=== PATIENT | male | born 1990 | race Caucasian/White ===

== ENCOUNTER → 2021-06-03 | Outpatient (CLI) | payer OTHER | LOC: LAB 12:57 | PROVIDERS: ATTEND Internal Medicine Pulmonary Disease | DX: R06.00 Dyspnea, unspecified (principal); Z20.822 Contact with and (suspected) exposure to COVID-19 ==

== ENCOUNTER 2021-06-06 20:29 | Emergency (ER) | payer OTHER ==
[~2021-06-06] VITALS: Ht 177.8 cm; Wt 81.6 kg
== END 2021-06-07 02:27 | disposition home or self-care (01) ==
LOC: ED 20:29
DX: M54.6 Pain in thoracic spine (principal); Z88.1 Allergy status to other antibiotic agents